=== PATIENT | male | born 1990 | race Caucasian/White ===

== ENCOUNTER 2017-05-06 18:39 | Emergency (ER) | payer OTHER ==
[2017-05-06 18:49] VITALS: BP 135/79; PULSE 63; RESP 16; TEMP 98; O2SAT 99
--- NOTE | 2017-05-06 19:12 | ED PDOC ---
Lower Extremity Pain/Injury Time Seen by Provider: 05/06/17 18:50 Chief Complaint (Nursing): Lower Extremity Problem/Injury Chief Complaint (Provider): Right ankle pain History Per: Patient History/Exam Limitations: no limitations Onset/Duration Of Symptoms: Hrs Current Symptoms Are (Timing): Still Present Additional Complaint(s): Patient is a 26 y/o male with no significant past medical history presenting to the emergency department for right ankle pain ongoing for approximately one week. Patient tripped and fell last week and injured right ankle. He never sought medical attention at that time but presents today with persistent pain and swelling. He did take ibuprofen 3 days ago which did help. No numbness or tingling to affected area. PCP: none provided. Past Medical History Reviewed: Historical Data, Nursing Documentation, Vital Signs Vital Signs: Last Vital Signs Temp 98.0 F 05/06/17 18:46 Pulse 63 05/06/17 18:46 Resp 16 05/06/17 18:46 BP 135/79 05/06/17 18:46 Pulse Ox 99 05/06/17 18:46 - Medical History PMH: No Chronic Diseases - Surgical History Surgical History: Appendectomy - Family History Family History: States: No Known Family Hx - Living Arrangements Living Arrangements: With Family - Social History Ex-Smoker (has not smoked in the last 12 months): No Alcohol: Social Drugs: Denies - Home Medications Home Medications: Ambulatory Orders Medication Instructions Recorded Fluconazole [Diflucan] 150 mg PO ONCE #1 tab 07/20/15 Fluconazole 100 mg PO DAILY #14 tab 07/28/15 - Allergies Allergies/Adverse Reactions: Allergies Allergy/AdvReac Type Severity Reaction Status Date / Time No Known Allergies Allergy Verified 02/19/16 18:43 Wells Criteria for PE - Wells Criteria for Pulmonary Embolism Clinical Signs and Symptoms of DVT: No P.E is #1 Diagnosis, or Equally Likely: No Heart Rate >100: No Immobilization at least 3 days;Surgery previous 4 weeks: No Previous, objectively diagnosed PE or DVT: No Hemoptysis: No Malignancy w/treatment within 6 months, or palliative: No Total Score: 0 Review of Systems ROS Statement: Except As Marked, All Systems Reviewed And Found Negative Musculoskeletal: Positive for: Other (right ankle pain) Physical Exam - Reviewed Nursing Documentation Reviewed: Yes Vital Signs Reviewed: Yes - Physical Exam Appears: Positive for: Well, Non-toxic, No Acute Distress Skin: Positive for: Normal Color, Dry. Negative for: Rash Eye Exam: Positive for: Normal appearance Extremity: Positive for: Other (Mild swelling and tenderness right lateral malleolus, nontender right foot, and palpable DP pulse, normal distal sensation , no calf swelling or tenderness to right leg) Neurologic/Psych: Positive for: Alert, Oriented (x3) - ECG O2 Sat by Pulse Oximetry: 99 (RA) Pulse Ox Interpretation: Normal - Other Rad Right ankle x-ray X-Ray: Interpreted by Me, Viewed By Me X-Ray Interpretation: No fracture or dislocation Medical Decision Making Medical Decision Making: Time: 19:03 Initial impression: Right ankle pain Initial plan: * Motrin 600 mg PO * Right Ankle X-ray * Reevaluation Patient aware of x-ray results. He states he has a brace that he has been using , [employer] declined. Crutches supplied. Patient was advised to continue with Motrin for pain and was referred to podiatry clinic for follow-up. Scribe Attestation: Documented by Carmen Handy, acting as a scribe for HUONG Kong. Provider Scribe Attestation: All medical record entries made by the Scribe were at my direction and personally dictated by me. I have reviewed the chart and agree that the record accurately reflects my personal performance of the history, physical exam, medical decision making, and the department course for this patient. I have also personally directed, reviewed, and agree with the discharge instructions and disposition. Disposition - Clinical Impression Clinical Impression: Ankle sprain and strain - Patient ED Disposition Is Patient to be Admitted: No Counseled Patient/Family Regarding: Studies Performed, Diagnosis, Need For Followup - Disposition Referrals: Podiatry Clinic [Outside] Disposition: Routine/Home Disposition Time: 20:27 Condition: STABLE Additional Instructions: Elevate, ice and rest the affected area. Motrin every 6 hrs for pain and swelling, available over the counter. Follow-up with podiatry clinic for any persistent symptoms. Instructions: Ankle Sprain (ED) Forms: [employer] ([place])
--- NOTE | 2017-05-07 12:00 | RAD ---
PROCEDURE: Right Ankle Radiographs. HISTORY: trauma COMPARISON: None FINDINGS: BONES: A tiny chip or avulsion fracture is not favored over her accessory ossicle inferior to the medial malleolus. No soft tissue changes seen related to this area. No suspicious lytic or blastic change or prominent fracture. JOINTS: Normal. No osteoarthritis. Ankle mortise maintained. Talar dome intact SOFT TISSUES: [id number] soft tissue edema appears to overlie the lateral malleolus without underlying lesion appreciated. OTHER FINDINGS: None. IMPRESSION: No prominent fracture or dislocation appreciable. Small accessory ossicles favored inferior to the medial malleolus versus tiny chip or avulsion fracture. Soft tissue edema is identified laterally rather than medially.
== END 2017-05-06 21:57 | disposition home or self-care (01) ==
LOC: H.ER 18:39
DX: S93.401A Sprain of unspecified ligament of right ankle, initial encounter (principal); W19.XXXA Unspecified fall, initial encounter; Y92.89 Other specified places as the place of occurrence of the external cause